=== PATIENT | female | born 1995 | race African-American/Black ===

== ENCOUNTER 2018-03-10 21:33 | Emergency (ER) | payer OTHER ==
--- NOTE | 2018-03-10 22:19 | ED ---
Headache - HPI Summary HPI Summary: 22-year-old female presents with headache and eye strain for the past couple hours. States she was working at her computer for long time developed some eyestrain. States that she then developed headache around her eyes. She does not have a history of headaches. She states she was having some photophobia but that has since resolved. She states pain is a dull 4 out of 10. Her headache has been getting better. She has not taking anything for pain. No sinus congestion. No recent illness. No change in vision. No floaters or stars seen. No neck pain. No nausea or vomiting. States she was a little bit dizzy but that has since resolved. No family history of CVAs aneurysms or migraines. This is not the worst headache of her life. No fevers. - History Of Current Complaint Chief Complaint: EDEyeProblem Stated Complaint: EYE PAIN Time Seen by Provider: 03/10/18 22:05 - Allergies/Home Medications Allergies/Adverse Reactions: Allergies Allergy/AdvReac Type Severity Reaction Status Date / Time No Known Allergies Allergy Verified 03/10/18 21:40 Home Medications: Home Medications Control Pill 1 tab PO DAILY 03/10/18 [History] PMH/Surg Hx/FS Hx/Imm Hx Endocrine/Hematology History: Denies: Hx Anticoagulant Therapy Cardiovascular History: Denies: Hx Myocardial Infarction Infectious Disease History: No Infectious Disease History: Denies: Traveled Outside the [place] in Last 30 Days - Family History Known Family History: Positive: Other - no hx of CVA, migraine - Social History Alcohol Use: Occasionally Substance Use Type: Reports: None Smoking Status (MU): Never Smoked Tobacco Review of Systems Negative: Fever Positive: Other - eye strain Negative: Chest Pain Negative: Shortness Of Breath Positive: Headache All Other Systems Reviewed And Are Negative: Yes Physical Exam Triage Information Reviewed: Yes Vital Signs On Initial Exam: Initial Vitals Temp Pulse Resp BP Pulse Ox 98.5 F 83 11 111/74 99 03/10/18 21:37 03/10/18 21:37 03/10/18 21:37 03/10/18 21:37 03/10/18 21:37 Vital Signs Reviewed: Yes Appearance: Positive: Well-Appearing Skin: Positive: Warm, Dry Head/Face: Positive: Normal Head/Face Inspection Eyes: Positive: Normal, EOMI, CORINA, Conjunctiva Clear ENT: Positive: Normal ENT inspection, Pharynx normal, TMs normal Respiratory/Lung Sounds: Positive: Clear to Auscultation, Breath Sounds Present Cardiovascular: Positive: Normal, RRR Musculoskeletal: Positive: Normal Neurological: Positive: Sensory/Motor Intact, Alert, Oriented to Person Place, Time, CN Intact II-III, Finger to Nose Psychiatric: Positive: Normal Diagnostics - Vital Signs Vital Signs Temp Pulse Resp BP Pulse Ox 03/10/18 21:37 98.5 F 83 11 111/74 99 - Laboratory Lab Statement: Any lab studies that have been ordered have been reviewed, and results considered in the medical decision making process. Headache Course/Dx - Course Course Of Treatment: 22-year-old female presents with headache and eye strain for the past couple hours. States she was working at her computer for long time developed some eyestrain. States that she then developed headache around her eyes. She does not have a history of headaches. She states she was having some photophobia but that has since resolved. She states pain is a dull 4 out of 10. Her headache has been getting better. She has not taking anything for pain. No sinus congestion. No recent illness. No change in vision. No floaters or stars seen. No neck pain. No nausea or vomiting. States she was a little bit dizzy but that has since resolved. No family history of CVAs aneurysms or migraines. This is not the worst headache of her life. No fevers. on exam normal neuro exam. no warning signs of headache with this presentation. explained likely a tension headache from the computer. discussed could get CT but patient declined. told if headache gets worst or any visual changes to return. patient understand and agrees with plan. - Diagnoses Differential Diagnosis/HQI/PQRI: Migraine, Subarachnoid Hemorrhage, Tension Headache Provider Diagnoses: Headache Discharge - Sign-Out/Discharge Documenting (check all that apply): Discharge/Admit/Transfer - Discharge Plan Condition: Good Disposition: HOME Patient Education Materials: Acute Headache (ED) Referrals: [facility] - Kirill DE SANTIAGO [Primary Care Provider] - Additional Instructions: Take Tylenol or ibuprofen every 6 hours Stay hydrated and get some rest Follow up with Kirill with 5 days Return to ED if develop any new or worsening symptoms - Billing Disposition and Condition Condition: GOOD Disposition: Home
[2018-03-10 22:36] VITALS: BP 112/74
== END 2018-03-10 22:36 | disposition home or self-care (01) ==
LOC: ED 21:33
DX: R51 Headache (principal)
CPT/HCPCS: 99282